=== PATIENT | male | born 1990 | race American Indian/Alaskan Native ===

== ENCOUNTER 2018-02-21 17:34 | Emergency (ER) | payer SELFPAY ==
[2018-02-21 17:47] VITALS: RESP 18
--- NOTE | 2018-02-21 18:31 | ED PDOC ---
Arrival/HPI - General Historian: Patient - General Chief Complaint: Finger,Hand,&Wrist Time Seen by Provider: 02/21/18 17:50 - History of Present Illness Narrative History of Present Illness (Text): 02/21/18 18:28 27yo male with no PMHx present with complaint of right 3rd finger pain. States his finger was caught inbetween tiles [id number] ago. States he came to ED today because ofthe persistent pain and swelling. He did not take any medication for the pain. Denies any other complaint. (Mallory,Alon A) Past Medical History - Provider Review Nursing Documentation Reviewed: Yes - Psychiatric Hx Substance Use: No Family/Social History - Physician Review Nursing Documentation Reviewed: Yes Family/Social History: Unknown Family HX Smoking Status: Former Smoker Hx Alcohol Use: No Hx Substance Use: No Allergies/Home Meds Allergies/Adverse Reactions: Allergies No Known Allergies Allergy (Verified 02/21/18 17:47) Review of Systems - Physician Review All systems were reviewed & negative as marked: Yes - Review of Systems Constitutional: Normal Eyes: Normal ENT: Normal Respiratory: Normal Cardiovascular: Normal Gastrointestinal: Normal Genitourinary Male: Normal Musculoskeletal: Arthralgias (right 3rd finger pain) Skin: Normal Neurological: Normal Endocrine: Normal Hemo/Lymphatic: Normal Psychiatric: Normal Physical Exam Vital Signs Reviewed: Yes Temperature: Afebrile Blood Pressure: Normal Pulse: Regular Respiratory Rate: Normal Appearance: Positive for: Well-Appearing, Non-Toxic, Comfortable Pain Distress: None Mental Status: Positive for: Alert and Oriented X 3 - Systems Exam Head: Present: Atraumatic, Normocephalic Pupils: Present: PERRL Extroacular Muscles: Present: EOMI Conjunctiva: Present: Normal Mouth: Present: Moist Mucous Membranes Neck: Present: Normal Range of Motion Respiratory/Chest: Present: Clear to Auscultation, Good Air Exchange. No: Respiratory Distress, Accessory Muscle Use Cardiovascular: Present: Regular Rate and Rhythm, Normal S1, S2. No: Murmurs Abdomen: No: Tenderness, Distention, Peritoneal Signs Back: Present: Normal Inspection Upper Extremity: Present: Normal ROM, NORMAL PULSES, Tenderness (Right 3rd distal finger), Swelling (right 3rd distal finger), Neurovascularly Intact. No : Cyanosis, Edema Lower Extremity: Present: Normal Inspection. No: Edema Neurological: Present: GCS=15, CN II-XII Intact, Speech Normal Skin: Present: Warm, Dry, Normal Color. No: Rashes Psychiatric: Present: Alert, Oriented x 3, Normal Insight, Normal Concentration Vital Signs Temp Pulse Resp BP Pulse Ox 02/21/18 18:51 98 F 64 18 128/79 99 02/21/18 17:44 98.3 F 62 18 131/80 100 02/21/18 17:34 98.3 F 62 18 131/80 100 Medical Decision Making ED Course and Treatment: 02/21/18 18:31 right hand xray - Nondisplaced fracture of distal 3rd phalanx noted Finger splint placed. Result DW the pt and he was referred to ortho/PMD (Alon Tejada) - RAD Interpretation Radiology Orders: 02/21/18 17:58 HAND RIGHT 3RD DIGIT (FINGER) [RAD] Stat - Medication Orders Current Medication Orders: Discontinued Medications Ibuprofen (Motrin Tab) 600 mg PO STAT STA Stop: 02/21/18 18:28 Last Admin: 02/21/18 18:37 Dose: 600 mg MAR Pain/Vitals Document 02/21/18 18:37 SRE (Rec: 02/21/18 18:38 SRE [id number]) Pain Reassessment Is This A Pain ReAssessment? Yes Sleep Is patient sleeping during reassessment? No Presence of Pain Presence of Pain Yes Pain Scale Used Pain Scale Used Numeric Location Left, Right or Bilateral Right Pain Location Body Site Finger Disposition/Present on Arrival - Present on Arrival Any Indicators Present on Arrival: No History of DVT/PE: No History of Uncontrolled Diabetes: No Urinary Catheter: No History of Decub. Ulcer: No History Surgical Site Infection Following: None - Disposition Have Diagnosis and Disposition been Completed?: Yes Disposition Time: 18:35 Patient Plan: Discharge - Disposition Diagnosis: Finger fracture Disposition: HOME/ ROUTINE Condition: STABLE Discharge Instructions (ExitCare): Finger Fracture (DC) Additional Instructions: Follow up with your doctor/Orthopedist Return to ED for any new or worsening symptoms Prescriptions: Ibuprofen [Motrin Tab] 600 mg PO Q6 #20 tab Referrals: Doug Gant III, MD [Medical Doctor] - Follow up with primary Forms: [employer] (Irish)
[2018-02-21 18:51] VITALS: BP 128/79; PULSE 64; TEMP 98; O2SAT 99
--- NOTE | 2018-02-22 08:57 | RAD ---
PROCEDURE: Right middle finger radiographs. HISTORY: finger pain s/p trauma COMPARISON: None. TECHNIQUE: AP radiograph of the right hand, as well as spot oblique and lateral images of right middle finger were obtained. FINDINGS: RIGHT MIDDLE FINGER: There is a oblique nondisplaced fracture traversing the neck of the distal phalanx 3rd finger right hand JOINTS: Normal. SOFT TISSUES: Normal. OTHER FINDINGS: None. IMPRESSION: Oblique nondisplaced fracture traversing the neck of the distal phalanx 3rd finger right hand
== END 2018-02-21 18:51 | disposition home or self-care (01) ==
LOC: ED 17:34
DX: S62.632A Displaced fracture of distal phalanx of right middle finger, initial encounter for closed fracture (principal); W23.0XXA Caught, crushed, jammed, or pinched between moving objects, initial encounter; Y99.0 Civilian activity done for income or pay; Z87.891 Personal history of nicotine dependence